=== PATIENT | female | born 1975 ===

== ENCOUNTER 2016-11-10 03:49 | Observation (INO) | payer MEDICAID ==
[2016-11-10] MEDS ORDERED: IOPAMIDOL 370 (76%) 100 ML VIAL IV ONE (03:50)
[2016-11-10] MEDS ORDERED: ASPIRIN CHEWTAB 81 MG TABLET ONE (04:03)
[2016-11-10 04:16] LABS: BASO % 0.5 % (0.2-1.0); EOS # 0.1 (0.0-0.5); EOS % 1.7 % (0.9-2.9); HEMATOCRIT 39.5 % (37.0-47.0); HEMOGLOBIN 12.7 gm/l (12.0-16.0); IMM NEUT% 0.4 % (0-1); LYMPH # 3.6 (1.0-4.8); LYMPH % 42.8 % (15-45); MEAN CELL VOLUME 92.1 fl (81.0-99.0); MEAN CORPUSCULAR HEMOGLOBIN 29.6 pg (27.0-31.0); MEAN CORPUSCULAR HGB CONC 32.2 g/dl (33.0-37.0); MEAN PLATELET VOLUME 10.9 fl (7.4-10.4); MONO # 0.6 (0.0-0.8); MONO % 7.2 % (4-12); NEUT % 47.4 % (43-75); PLATELET COUNT 277 K/mm3 (130-400); RED CELL DISTRIBUTION WIDTH 11.9 % (11.5-14.5)
[2016-11-10] MEDS ORDERED: MAALOX/LIDO2%VISC/SIMETHICONE 40 ML BOT ONE (04:44)
[2016-11-10 04:56] LABS: ALB/GLOB RATIO 1.1 (>1.0); ALBUMIN 3.9 gm/dL (3.5-5.7); CALCIUM 9.2 mg/dL (8.6-10.3)
[2016-11-10 07:14] VITALS: BMI 34.2
[2016-11-10 07:18] VITALS: BP 129/73
[2016-11-10] MEDS ORDERED: BISACODYL 5 MG TABLET.EC PO PRN (08:01)
[2016-11-10] MEDS ORDERED: MENTHOL/CETYLPYRD 1 EACH LOZENGE PO PRN (08:01)
[2016-11-10] MEDS ORDERED: MAGNESIUM HYDROXIDE 30 ML UDCUP PO PRN (08:01)
[2016-11-10] MEDS ORDERED: BISACODYL 10 MG SUP PR PRN (08:01)
[2016-11-10] MEDS ORDERED: ACETAMINOPHEN 325 MG TABLET PO PRN (08:01)
[2016-11-10] MEDS ORDERED: BLISTEX LIPSTICK 1 EACH TP PRN (08:01)
[2016-11-10] MEDS ORDERED: SODIUM CHLORIDE 0.9% 100 ML IV PRN (08:01)
--- NOTE | 2016-11-10 08:13 | CT ---
EXAMINATION: CT angiography of the thorax.CTA CHEST FOR PE INDICATION: Chest pain. Elevated d-dimer. COMPARISON: None. TECHNIQUE: Helical scan mode CT of the Thorax after uneventful intravenous contrast administration of 80 ml of Isovue-370. Imaging device: [employer] multidetector CT scan. Helically acquired stacked images were reviewed in the axial, sagittal and coronal planes. Additional 3-D postprocessing was performed and reconstructed images were acquired at the 3D [employer] workstation and reviewed as well. FINDINGS: The bolus is of good quality for diagnosis of pulmonary embolism. There are no pulmonary arterial filling defects. No vascular malformations are identified. The great vessels opacify normally. The lung parenchyma: There are innumerable groundglass nodules bilaterally involving all lung zones. There is groundglass bibasilar atelectasis which may obscure smaller nodules. No lobar consolidation is identified. No fibrosis or emphysematous changes are seen. Pleural effusion: None: Mediastinum: There is extensive mediastinal adenopathy right greater than left. There is encasement of the right lower lobe bronchus with soft tissue/adenopathy measuring 3.4 x 2.7 x 2.7 cm. There is subcarinal lymphadenopathy with an AP dimension 1.6 cm. Mild left hilar adenopathy is noted with a 1.2 cm lymph node as well. Azygos adenopathy is suggested however streak artifact obscures the azygos vein. There are subcentimeter lymph nodes in the AP window. No supraclavicular lymphadenopathy is identified. Osseus structures: No gross lytic or blastic lesions. Soft tissues: within normal limits Limited evaluation of the abdomen on this arterial phase injection reveals: The liver is enlarged. There are changes suggestive of fatty infiltration in the visualized segments. The remainder of the visualized portions of the abdomen are grossly unremarkable. IMPRESSION: 1. Negative for pulmonary embolism. 2. Mediastinal lymphadenopathy with innumerable bilateral lung nodules. Findings worrisome for neoplastic/metastatic process. Secondary possibility be considered would include infectious etiology with septic emboli. No consolidation or pleural effusion is identified. Findings were communicated by [facility] to the emergency department at: 5:44 AM 11/10/2016
[2016-11-10] MEDS ORDERED: PANTOPRAZOLE 40 MG TABLET DR PO SCH (09:00)
--- NOTE | 2016-11-10 09:24 | HP ---
Lisandra Rivera ADMIT DATE: 11/10/2016 CHIEF COMPLAINT: Chest pain. HISTORY OF PRESENT ILLNESS: Lisandra is a 40-year-old otherwise healthy female. 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 It came on around 0200 and woke her up out of a sleep. The pain was severe and radiated to her back, it was associated with diaphoresis and shortness of breath. She presented to the emergency room for evaluation. In the emergency room her EKG was unremarkable. Initial cardiac workup was negative. She received nitroglycerin x3 with minimal effect. She then received a GI cocktail which did seem to resolve her symptoms. She was incidentally noted to have an elevated D-dimer and a chest CT angiogram was performed in the emergency room as well, this showed no evidence of a pulmonary emboli though it did show findings of a lung mass in the right hilum and lower lobe as well as numerous pulmonary nodules bilaterally. The findings were suspicious for a tumor with metastases. It was elected to refer the patient to observation to rule out myocardial infarction and to arrange for further workup for the pulmonary issues. REVIEW OF SYSTEMS: She has had no headache, no visual symptoms, no difficulty swallowing other than this episode in the last few hours. She has had no recent chest pain or shortness of breath. No heart palpitations. No stomach pain. No change in bowel or bladder habits. No extremity weakness, numbness, tingling, or swelling. PAST MEDICAL HISTORY: Hyperlipidemia not requiring medications, this is being followed regularly by her regular physician. PAST SURGICAL HISTORY: None. ALLERGIES: None. CURRENT MEDICATIONS: None. SOCIAL HISTORY: She is and lives with her and four children. No alcohol, tobacco, or drug use. She is not working outside the home at this time. FAMILY HISTORY: Negative for cardiac disease. Negative for diabetes. Negative for cancer. OBJECTIVE: VITAL SIGNS: Temperature 98.4, pulse 78, blood pressure 129/73, respirations 14, O2 sat 98% on room air. GENERAL: This is a well-developed, well-nourished young female. She is alert, calm, and in no distress what so ever. HEENT: Benign. TM's are clear. Extraocular movements are intact. Sclerae are anicteric. Oropharynx is moist. No lesion. NECK: Supple. LUNGS: Clear with no wheezes, rales, or rhonchi. HEART: Regular rate and rhythm. No murmurs, rubs, or gallops. ABDOMEN: Soft, nontender, nondistended. No rebound. No guarding. EXTREMITIES: No edema. LABORATORY: CBC with a white count of 8.5, hemoglobin 12.7, hematocrit 39.5, platelets of 277. Chemistry panel, sodium of 140, potassium 3.5, chloride 105, carbon dioxide 27, BUN 10, creatinine 0.7, glucose of 104, total bilirubin 0.3, AST 15, ALT 10, alk phos 99, troponin less than 0.01. D-dimer is elevated at 0.56. DIAGNOSTICS: Verbal report on chest CT angiogram with right hilar mass concerning for tumor with multiple other small nodules scattered bilaterally. I am awaiting official radiology report. EKG by report from the emergency room normal sinus rhythm, no acute ST or T-wave abnormalities. I cannot find the initial report is unavailable at time of dictation, if we are able to locate it we will repeat. ASSESSMENT: 1. Atypical chest pain. 2. Pulmonary mass/nodules. PLAN: At this point she is completely asymptomatic. We will go ahead and check serial cardiac enzymes and then consider further stress testing. At this point she seems at low risk for significant coronary artery disease. The patient is a self pay and this workup may represent a severe hardship. Later in the morning when her clinic is open and social work is available we will explore various options that we may proceed with cardiac stress testing versus referral for outpatient follow up. In regards to her pulmonary issues we will work on referring her for a pulmonology consult as an outpatient. Deep venous thrombosis prophylaxis is not indicated as the patient is fully ambulatory and anticipate will be in the hospital less than 24 hours. JOB: [id number] CC: Alice
--- NOTE | 2016-11-10 12:29 | DS ---
Lisandra Rivera ADMIT DATE: 11/10/2016 DISCHARGE DATE: 11/10/2016 ADMIT DIAGNOSES: 1. Atypical chest pain. 2. Pulmonary mass/nodules of unclear etiology. DISCHARGE DIAGNOSES: 1. Atypical chest pain. 2. Pulmonary mass/nodules of unclear etiology. ADMIT HISTORY AND PHYSICAL: Please my dictated note for details. Briefly, Mrs. Rivera is a healthy 40-year-old female with really no cardiac risk factors. 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 She presented to the emergency room for evaluation. In the emergency room her cardiac workup was negative. She did have a borderline elevated D-dimer so a chest CT scan was done which did come back showing no evidence of pulmonary emboli. It did however show evidence of a 3.4 x 2.7 x 2.7 cm mass in the right lower lobe bronchus/hilum. There was also too numerous to count nodules in the bilateral lung [place] worrisome for neoplastic/metastatic process. She was admitted for rule out myocardial infarction and initiation of further workup. HOSPITAL COURSE: She was completely asymptomatic from the time of admission and throughout her hospitalization. Her symptoms were resolved in the emergency room with a GI cocktail after nitroglycerin sublingual did not resolve it. Her second set of troponin's were done and were negative. The patient remained asymptomatic. Given her lack of risk factors and the atypical nature of her pain and the obvious other etiology for her symptoms it was elected not to pursue further cardiac workup. The patient unfortunately does not have health insurance and it will make workup of her lung mass/nodules very difficult. I discussed her case with HEATH Chilel at [facility] and we have arranged for her to have follow p there tomorrow 11/11/2016 at 9:30 a.m. and they will work on arranging follow up for appropriate pulmonary/oncology workup. In the meantime given the relief she got with GI cocktail I have gone ahead and prescribed her omeprazole as well as ibuprofen. DISCHARGE MEDICATIONS: 1. Omeprazole 20 mg by mouth daily. 2. Ibuprofen 200 mg tablets 3 by mouth four times daily. DISCHARGE FOLLOW UP: Luana Lott at [facility] 11/11/2016 at 9:30 a.m. as scheduled. JOB: CC: Luana Lott at [facility]
== END 2016-11-10 11:38 | disposition home or self-care (01) ==
LOC: ED 03:49 → MS 06:07
PROVIDERS: ADMIT Family Medicine; ATTEND Family Medicine
DX: R07.89 Other chest pain (principal); R91.8 Other nonspecific abnormal finding of lung field